=== PATIENT | male | born 1960 | race Caucasian/White ===

== ENCOUNTER → 2016-07-09 | Outpatient (CLI) | payer BC | LOC: GMAB 14:40 | PROVIDERS: ATTEND Family Medicine | DX: M25.562 Pain in left knee (principal) ==

== ENCOUNTER → 2016-12-30 | Outpatient (CLI) | payer BC | END | disposition home or self-care (01) | LOC: LAB.O 10:18 | PROVIDERS: ATTEND Internal Medicine | DX: M06.9 Rheumatoid arthritis, unspecified (principal) ==

== ENCOUNTER → 2017-02-16 | Outpatient (CLI) | payer BC | LOC: GMAB 17:53 | PROVIDERS: ATTEND Family Medicine | DX: L03.115 Cellulitis of right lower limb (principal) ==

== ENCOUNTER → 2017-02-16 | Outpatient (CLI) | payer BC ==
--- NOTE | 2017-02-17 08:16 | RAD ---
EXAM DESCRIPTION: Ankle,Right 3 Views CLINICAL HISTORY: FOREIGN BODY COMPARISON: None. IMPRESSION: 3 views of the right ankle show no evidence of acute fracture, focal bone destruction, or joint dislocation. Ankle mortise appears maintained. Soft tissues are unremarkable. No radiopaque foreign body seen in the visualized soft tissues. Degenerative changes at the talonavicular joint are seen. Electronically signed by: Doug Perera MD 02/17/2017 8:15 AM CDT
== END ==
LOC: RAD 16:04
PROVIDERS: ATTEND Family Medicine
DX: L03.115 Cellulitis of right lower limb (principal)

== ENCOUNTER → 2018-03-31 | Outpatient (CLI) | payer BC | LOC: GMAE 10:43 | PROVIDERS: ATTEND Family Medicine | DX: T84.84XA Pain due to internal orthopedic prosthetic devices, implants and grafts, initial encounter (principal); T84.7XXA Infection and inflammatory reaction due to other internal orthopedic prosthetic devices, implants and grafts, initial encounter; M00.9 Pyogenic arthritis, unspecified ==

== ENCOUNTER → 2018-05-14 | Outpatient (CLI) | payer BC ==
--- NOTE | 2018-05-14 13:48 | US ---
US THYROID CLINICAL STATEMENT: THYROID NODULE. E04.1. COMPARISON: None FINDINGS: Size right thyroid lobe: 4.3 x 1.7 x 1.5 cm Size left thyroid lobe: 4.3 x 2.3 x 1.9 cm Size isthmus: 0.29 cm Estimated total number of nodules greater than or equal to 1 cm: 2 Nodule 1: Size: 0.6 x 0.8 x 0.3 cm Location: Right Lower Composition: mixed cystic and solid: 1 point Echogenicity: hyperechoic: 1 point Shape: wider than tall: 0 points Margins: ill-defined: 0 points Echogenic foci: none: 0 points ACR Total Points: 2; ACR TI-RADS risk category: TR2 - nonsuspicious nodule. Nodule 2: Size: 0.4 x 0.3 x 0.2 cm Location: Right Upper Composition: solid or almost completely solid: 2 points Echogenicity: very hypoechoic: 3 points Shape: wider than tall: 0 points Margins: smooth: 0 points Echogenic foci: none: 0 points ACR Total Points: 5; ACR TI-RADS risk category: TR4 - moderately suspicious nodule. Nodule 3: Size: 1.9 x 1.5 x 1.4 cm Location: Left Mid Composition: mixed cystic and solid: 1 point Echogenicity: hypoechoic: 2 points Shape: wider than tall: 0 points Margins: smooth: 0 points. Hypoechoic margins. Echogenic foci: none: 0 points ACR Total Points: 3; ACR TI-RADS risk category: TR3 - mildly suspicious nodule. Nodule 4: Size: 1.0 x 1.2 x 1.0 cm Location: Left Mid Composition: mixed cystic and solid: 1 point Echogenicity: hypoechoic: 2 points Shape: taller than wide: 3 points Margins: smooth: 0 points. Margins are partially hypoechoic. Echogenic foci: none: 0 points ACR Total Points: 5; ACR TI-RADS risk category: TR4 - moderately suspicious nodule. No distinct solid mass or cyst in the surrounding soft tissue. No parenchymal edema or large calcifications. No overlying skin changes. Normal vascularity. IMPRESSION: 1. Nodule 1: ACR TI-RADS 2017 Category TR2. Recommend: No further follow-up.. These [facility] [employer] recommendations based upon ACR TI RADS 2017 guidelines below.* 2. Nodule 2: ACR TI-RADS 2017 Category TR4. Recommend: No further follow-up. 3. Nodule 3: ACR TI-RADS 2017 Category TR3. Recommend: Follow-up ultrasound in 1 year.. 4. Nodule 4: ACR TI-RADS 2017 Category TR4. Recommend: Follow-up ultrasound in 1 year.. The soft tissue around the thyroid gland is unremarkable. *ACR TI-RADS 2017 Recommendations: TR1: No FNA or follow up TR2: No FNA or follow up TR3: FNA if >/= 2.5 cm, follow up if 1.5 - 2.4 cm in 1, 3, and 5 years TR4: FNA if >/= 1.5 cm, follow up if 1.0 - 1.4 cm in 1, 2, 3, and 5 years TR5: FNA if >/= 1.0 cm, follow up if 0.5 - 0.9 cm every year for 5 years ACR TI-RADS recommends that no more than two nodules with the highest ACR TI-RADS total point should be biopsied and no more than four nodules should be followed. Electronically signed by: Dany Carrillo MD 05/14/2018 1:[address] [facility]
== END ==
LOC: US 09:40
PROVIDERS: ATTEND Family Medicine
DX: E04.1 Nontoxic single thyroid nodule (principal)

== ENCOUNTER 2018-08-09 12:24 | Emergency (ER) | payer BC ==
[2018-08-09] MEDS ORDERED: MORPHINE SULFATE INJ 10 MG/ML VIAL IV ONE ×2 (13:01→14:48)
[2018-08-09] MEDS ORDERED: IBUPROFEN 200 MG TAB PO ONE (14:48)
[2018-08-09] MEDS ORDERED: ONDANSETRON ODT 8 MG TAB SL ONE (14:51)
--- NOTE | 2018-08-09 14:51 | ED.PDOC ---
History of Present Illness - General Chief Complaint: General Stated Complaint: fever, increased pain from knee surg Time Seen by Provider: 08/09/18 12:29 Source: patient Exam Limitations: no limitations - History of Present Illness Initial Comments: the patient's a 57-year-old male presenting to emergency room secondary to fever and knee pain for the last couple of days. The patient had open biopsy of his right knee approximately 9-10 days ago. Shortly after that the wound dehisced and has been draining since. He was apparently called and oral antibiotics and took them for 5 or 6 days but has finished them. Blood culture has been taken here. The patient is in some significant pain. He does have a fever. He does not appear to be septic. Timing/Duration: 1 week Severity: moderate Improving Factors: nothing Worsening Factors: nothing Associated Symptoms: loss of appetite, malaise Allergies/Adverse Reactions: Allergies NO KNOWN ALLERGY Allergy (Verified 08/09/18 12:41) Home Medications: Ambulatory Orders Amlodipine Besylate 5 mg PO DAILY 08/09/18 Celecoxib [Celebrex] 200 mg PO DAILY 08/09/18 Lisinopril 20 mg PO BID 08/09/18 Review of Systems - Review of Systems Constitutional: States: fever, malaise EENTM: States: no symptoms reported Respiratory: States: no symptoms reported Cardiology: States: no symptoms reported Gastrointestinal/Abdominal: States: no symptoms reported, nausea - mild with pain medicine Genitourinary: States: no symptoms reported Musculoskeletal: States: see HPI Skin: States: see HPI Neurological: States: no symptoms reported All other Systems: No Change from Baseline Past Medical History (General) - Patient Medical History Hx Hypertension: Yes Hx Cancer: No Hx Hepatitis C: No - Vaccination History Hx Tetanus, Diphtheria Vaccination: Yes Hx Influenza Vaccination: Yes Hx Pneumococcal Vaccination: No Immunizations Up to Date: Yes - Social History Hx Tobacco Use: Yes - dips now Hx Alcohol Use: Yes - 6 pack a month Hx Substance Use: No Hx Substance Use Treatment: No Hx Depression: No Family Medical History - Family History Mother Family History: Unknown Living Status: Physical Exam - Physical Exam General Appearance: Alert, No apparent distress Eye Exam: bilateral normal Ears, Nose, Throat: hearing grossly normal, normal ENT inspection Neck: full range of motion, supple Respiratory: lungs clear, normal breath sounds, no respiratory distress, no accessory muscle use Cardiovascular/Chest: normal peripheral pulses, regular rate, rhythm, no edema Peripheral Pulses: radial,right: 2+, radial,left: 2+, dorsalis pedis,right: 2+, dorsalis pedis,left: 2+ Gastrointestinal/Abdominal: non tender, soft Rectal Exam: deferred Back Exam: no CVA tenderness, no vertebral tenderness Extremity: non-tender, normal inspection, no pedal edema, normal capillary refill Neurologic: qa architect II-XII nml as tested, alert, normal mood/affect, oriented x 3 Skin Exam: normal color Comments: Vital Signs - 24 hr 08/09/18 12:45 Temperature 102.1 F H Pulse Rate [ 106 H monitor] Respiratory 20 Rate Blood Pressure 142/90 [LA] O2 Sat by Pulse 95 Oximetry Laboratory Tests 08/09/18 08/09/18 08/09/18 12:57 12:57 12:57 WBC 13.6 H RBC 4.77 Hgb 13.3 L Hct 39.5 L MCV 82.8 MCH 27.8 MCHC 33.7 RDW 13.3 Plt Count 163 MPV 8.2 Absolute Neuts (auto) 12.20 H Absolute Lymphs (auto) 0.40 L Absolute Monos (auto) 1.00 H Absolute Eos (auto) 0.00 Absolute Basos (auto) 0.10 Neutrophils % 89.4 H Lymphocytes % 2.6 L Monocytes % 7.3 Eosinophils % 0.3 L Basophils % 0.4 ESR 5 Sodium 136 Potassium 3.8 Chloride 103 Carbon Dioxide 23 Anion Gap 13.8 BUN 28 H Creatinine 0.96 BUN/Creatinine Ratio 29.2 H Random Glucose 97 Serum Osmolality 277.3 Calcium 9.2 Total Bilirubin 1.9 H AST 42 ALT 40 Alkaline Phosphatase 56 Serum Total Protein 6.6 Albumin 4.5 Globulin 2.1 L Albumin/Globulin Ratio 2.1 H Progress - Progress Progress: 08/09/18 14:52 The patient is a 57-year-old male presenting with a infection of his right knee operative site. The wound is draining. We did clean the wound exteriorly and place another dressing. blood culture has been performed. I have talked with the patient's orthopedic surgeon Dr. Live and we're going to send the patient directly to [facility] for direct admission under him for further treatment. At this point in time antibiotics have not been given to allow for further operative cultures if Dr. Live desires. Transferring for specialty care. He does not appear to be septic at this time however antibiotic should be started later today to prevent further deterioration. The patient is to proceed directly there for further evaluation and treatment. He does understand this. Departure - Departure Clinical Impression: Infection of knee Disposition: Transfer to Hospital Condition: Fair Departure Forms: ED Discharge - Pt. Copy, Patient Portal Self Enrollment Home Medications: Ambulatory Orders Amlodipine Besylate 5 mg PO DAILY 08/09/18 Celecoxib [Celebrex] 200 mg PO DAILY 08/09/18 Lisinopril 20 mg PO BID 08/09/18 Transfer to Outside Facility - Transfer Information Accepting Provider:: dr live Accepting Facility: [facility] Reason for Transfer: required specialist not available
[2018-08-09] MEDS ORDERED: CEFEPIME 2 GM in SODIUM CHL 0.9% 50ML MIN-BAG+ 50 ML IVPB ONE (16:56)
[2018-08-09] MEDS ORDERED: VANCOMYCIN HCL INJ 1,000 MG, VANCOMYCIN HCL INJ 500 MG in SODIUM CHLORIDE 0.9% 250ML 25... IVPB ONE (17:34)
[2018-08-09] MEDS ORDERED: CEFEPIME 2 GM VIAL ONE (17:38)
[2018-08-09] MEDS ORDERED: SODIUM CHL 0.9% 50ML MIN-BAG+ 50 ML IVPB ONE (17:38)
[2018-08-09] MEDS ORDERED: HYDROcodone 10MG/APAP 325MG 1 EA TAB PO ONE (18:18)
[2018-08-09] MEDS ORDERED: VANCOMYCIN HCL INJ 1,000 MG VIAL IVPB ONE (18:20)
[2018-08-09] MEDS ORDERED: SODIUM CHLORIDE 0.9% 250ML 250 ML ONE (18:21)
[2018-08-09] MEDS ORDERED: VANCOMYCIN HCL INJ 500 MG VIAL ONE (18:21)
[2018-08-09 20:06] VITALS: O2SAT 94
[2018-08-09 21:09] VITALS: BP 102/58; TEMP 99.8
== END 2018-08-09 21:12 | disposition home or self-care (01) ==
LOC: ER 12:24
DX: T81.40XA Infection following a procedure, unspecified, initial encounter (principal); L08.9 Local infection of the skin and subcutaneous tissue, unspecified; I10 Essential (primary) hypertension; F17.220 Nicotine dependence, chewing tobacco, uncomplicated; Y83.8 Other surgical procedures as the cause of abnormal reaction of the patient, or of later complication, without mention of misadventure at the time of the procedure
CPT/HCPCS: 80053; 85025; 85651; 87040; 87070; 87205; J0692; J2270; J3370; J7050

== ENCOUNTER → 2018-08-23 | Outpatient (CLI) | payer BC | LOC: GRHH 10:15 | PROVIDERS: ATTEND Internal Medicine Infectious Disease | DX: T84.53XA Infection and inflammatory reaction due to internal right knee prosthesis, initial encounter (principal); Z79.2 Long term (current) use of antibiotics; Z51.81 Encounter for therapeutic drug level monitoring ==

== ENCOUNTER → 2018-08-30 | Outpatient (CLI) | payer BC | LOC: GRHH 09:21 | PROVIDERS: ATTEND Internal Medicine Infectious Disease | DX: T84.53XA Infection and inflammatory reaction due to internal right knee prosthesis, initial encounter (principal); Z51.81 Encounter for therapeutic drug level monitoring; Z79.2 Long term (current) use of antibiotics ==

== ENCOUNTER → 2018-09-14 | Outpatient (CLI) | payer BC | LOC: GRHH 12:21 | PROVIDERS: ATTEND Internal Medicine Infectious Disease | DX: T84.53XD Infection and inflammatory reaction due to internal right knee prosthesis, subsequent encounter (principal); Z51.81 Encounter for therapeutic drug level monitoring; Z79.2 Long term (current) use of antibiotics ==

== ENCOUNTER → 2018-09-21 | Outpatient (CLI) | payer BC | LOC: GRHH 17:55 | PROVIDERS: ATTEND Internal Medicine Infectious Disease | DX: T84.53XD Infection and inflammatory reaction due to internal right knee prosthesis, subsequent encounter (principal); Z51.81 Encounter for therapeutic drug level monitoring; Z79.2 Long term (current) use of antibiotics ==

== ENCOUNTER → 2018-09-27 | Outpatient (CLI) | payer BC | LOC: GRHH 17:39 | PROVIDERS: ATTEND Internal Medicine Infectious Disease | DX: T84.53XD Infection and inflammatory reaction due to internal right knee prosthesis, subsequent encounter (principal); Z51.81 Encounter for therapeutic drug level monitoring; Z79.2 Long term (current) use of antibiotics ==

== ENCOUNTER → 2018-10-04 | Outpatient (CLI) | payer BC | LOC: GRHH 18:35 | PROVIDERS: ATTEND Internal Medicine Infectious Disease | DX: T84.53XD Infection and inflammatory reaction due to internal right knee prosthesis, subsequent encounter (principal); Z51.81 Encounter for therapeutic drug level monitoring; Z79.2 Long term (current) use of antibiotics ==

== ENCOUNTER → 2018-10-11 | Outpatient (CLI) | payer BC | LOC: GRHH 17:36 | PROVIDERS: ATTEND Internal Medicine Infectious Disease | DX: T84.53XD Infection and inflammatory reaction due to internal right knee prosthesis, subsequent encounter (principal); Z51.81 Encounter for therapeutic drug level monitoring; Z79.2 Long term (current) use of antibiotics ==

== ENCOUNTER → 2019-04-06 | Outpatient (CLI) | payer BC | LOC: GMAE 11:08 | PROVIDERS: ATTEND Family Medicine | DX: M17.12 Unilateral primary osteoarthritis, left knee (principal) ==

== ENCOUNTER → 2019-12-15 | Outpatient (CLI) | payer BC | LOC: GMAE 10:57 | PROVIDERS: ATTEND Family Medicine | DX: Z00.00 Encounter for general adult medical examination without abnormal findings (principal) ==

== ENCOUNTER → 2020-05-21 | Outpatient (CLI) | payer BC | LOC: GMAE 10:44 | PROVIDERS: ATTEND Family Medicine | DX: M25.562 Pain in left knee (principal) ==

== ENCOUNTER → 2020-06-14 | Outpatient (CLI) | payer BC | LOC: LAB.O 09:17 | PROVIDERS: ATTEND Orthopaedic Surgery | DX: T84.032A Mechanical loosening of internal right knee prosthetic joint, initial encounter (principal); Z96.653 Presence of artificial knee joint, bilateral ==